=== PATIENT | female | born 1965 | race Caucasian/White ===

== ENCOUNTER 2023-12-07 08:43 | Emergency (ER) | payer BC, SELFPAY ==
[2023-12-07 08:51] VITALS: BP 160/87; PULSE 96; RESP 18; TEMP 36.8; O2SAT 98; BMI 24.9
[2023-12-07 09:09] VITALS: O2SAT 97
--- NOTE | 2023-12-07 09:09 | CRLHL7_ITS ---
For Patients: As a result of the Century Cures Act, medical imaging exams and procedure reports are released immediately into your electronic medical record. You may view this report before your referring provider. If you have questions, please contact your health care provider. Indication: Shortness of breath Technique: Chest 2 views Comparison: Chest x-ray 11/07/2018 Findings/Impression: Cardiovascular and mediastinum: Heart size and vasculature are normal in caliber and appearance. Mediastinum is within normal limits. Lungs and pleural spaces: Lungs are clear. No sign of infiltrate or mass. No sign of pleural effusion. No pneumothorax. Bones and soft tissues: Right upper quadrant surgical clips. Dictated by Caleb Armstrong MD @ 12/07/2023 9:41:57 AM (Electronically Signed)
--- NOTE | 2023-12-07 09:10 | ED_ITS ---
HPI - General Adult General Chief complaint: Chest Pain Stated complaint: chest pains, sweating, feeling weak and light head Time Seen by Provider: 12/07/23 08:56 Source: patient Mode of arrival: ambulatory Limitations: no limitations History of Present Illness HPI narrative: 58-year-old female presenting today after she had a 10 minute episode of chest pain 1 hour prior to presenting to the ER. Pain was substernal and central, towards the bottom of the sternum. She describes it as a pressure that came out of nowhere. It made her feel lightheaded, nauseated and sweaty. 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 Patient does have a past medical history significant for an ischemic stroke, she is on Plavix. She also had which she describes as a heart attack a many years ago in her 40s, she states that she had an angiogram at that time they did not find anything. 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 Patient also takes rosuvastatin and no other medications. Patient is currently asymptomatic. Father had an PA in his 50s, mother had an PA in her 70s. Related Data Allergies Allergy/AdvReac Type Severity Reaction Status Date / Time Penicillins Allergy Verified 12/07/23 08:50 Review of Systems Status of ROS: Reports: 10 or more systems reviewed and unremarkable except as noted in History and below [facility] Social History Smoking Status: Never smoker How often do you have a drink containing alcohol: never How often do you have six or more drinks on one occasion: Never AUDIT-C Alcohol total score: 0 Non-prescribed substance use: denies use service: No Exam Narrative: Exam Narrative: Well-nourished well-developed patient in no acute distress. Alert and oriented. Answers questions appropriately. Mood and affect are appropriate. Thoughts are goal oriented and rational. No tangential or magical thinking noted. Patient speaks in full sentences without needing to catch her breath. Speech is not slurred or pressured. Normal facial symmetry. HEENT: Normocephalic atraumatic. Pupils are equally round reactive to light. Extraocular muscles are intact. Conjunctivae are moist without any icterus noted. Moist mucous membranes. Posterior pharynx is normal. Neck is soft without any lymphadenopathy or thyromegaly. Cardiovascular: Heart is regular rate and rhythm S1 and S2 are present without any murmurs. Lungs: Clear to auscultation bilaterally no wheezes rhonchi or rales are appreciated. Patient takes deep breaths without any discomfort. Abdomen: Soft and nontender nondistended with normal bowel sounds. No guarding or rebound. Extremities: Bilateral lower extremities are without edema. Skin: Well perfused without any obvious rashes. Strength is 5/5 of the upper and lower extremities. Reflexes are 2+ and symmetric at the knees. There is no nystagmus either horizontally or vertically. Gait is normal. Const: Vital Signs, click to edit/add: Vital Signs - 24 hr 12/07/23 08:51 12/07/23 09:09 Temperature 98.3 F Pulse Rate [Pulse Oximeter] 96 Respiratory Rate 18 Blood Pressure [Ri t Upper Arm] 160/87 H Pulse Oximetry 98 97 Oxygen Delivery Me thod Room Air Course Course ED Course: EKG, read by me, shows normal sinus rhythm with a pulse of 90. CBC is entirely normal. D-dimer is within normal limits. Normal chemistries. LFTs unremarkable. Troponin less than 0.01. Normal lipase. Repeat EKG and troponin at the 2 hour abrahan revealed EKG with normal sinus rhythm and a pulse of 77 and troponin of 0. Patient remained asymptomatic during her time in the ER. Vital Signs Vital signs: Initial Vital Signs Temperature 98.3 F 12/07/23 08:51 Temperature Source Temporal Artery Scan 12/07/23 08:51 Pulse Rate 96 12/07/23 08:51 Pulse Rhythm Regular 12/07/23 08:51 Respiratory Rate 18 12/07/23 08:51 Blood Pressure 160/87 H 12/07/23 08:51 Blood Pressure Mean 111 H 12/07/23 08:51 Blood Pressure Position Supine 12/07/23 08:51 Pulse Oximetry 98 12/07/23 08:51 Oxygen Delivery Method Room Air 12/07/23 08:51 Vital Signs Temperature 98.3 F 12/07/23 08:51 Pulse Rate 96 12/07/23 08:51 Respiratory Rate 18 12/07/23 08:51 Blood Pressure 160/87 H 12/07/23 08:51 Pulse Oximetry 98 12/07/23 08:51 Oxygen Delivery Method Room Air 12/07/23 08:51 Temperature 98.3 F 12/07/23 08:51 Pulse Rate 96 12/07/23 08:51 Respiratory Rate 18 12/07/23 08:51 Blood Pressure 160/87 H 12/07/23 08:51 Pulse Oximetry 97 12/07/23 09:09 Oxygen Delivery Method Room Air 12/07/23 08:51 Medical Decision Making MDM Narrative Medical decision making narrative: 58-year-old female with 10 minute episode of chest pain resolved. Unclear etiology. Return to the ER if chest pain returns. Follow-up primary care team this coming week. Lab Data Lab results reviewed: Yes I reviewed the patient's lab results Labs: Lab Results 12/07/23 12/07/23 12/07/23 Range/Units 09:00 09:01 11:00 WBC 5.99 (4.50-11.00) K/uL RBC 4.42 (4.00-5.20) m/uL Hgb 13.2 (12.0-16.0) gm/dL Hct 40.7 (33.0-51.0) % MCV 92 (80-100) fL MCH 30 (26-34) pg MCHC 32 (32-36) gm/dL RDW Coeff of David 13.1 (11.5-15.5) % Plt Count 235 (140-440) K/uL Neut % (Auto) 45.6 (42.0-72.0) % Lymph % (Auto) 39.9 (20-44) % [place] % (Auto) 10.5 (0.0-11.0) % Eos % (Auto) 3.2 (0.0-7.0) % Baso % (Auto) 0.8 (0.0-3.0) % Neut # (Auto) 2.73 (1.7-7.0) K/uL Lymph # (Auto) 2.39 (0.90-2.90) K/uL [place] # (Auto) 0.60 (0.00-0.90) K/UL Eos # (Auto) 0.19 (0.00-0.50) K/uL Baso # (Auto) 0.05 (0.00-0.30) K/uL Abs Immat Gran (auto) 0.00 (0.00-0.30) K/uL Imm/Tot Granulo (auto) 0.0 % D-Dimer Quant (PE/DVT) 0.39 (0.00-0.50) ug/ml Sodium 140 (135-149) mmol/L Potassium 4.1 (3.6-5.1) mmol/L Chloride 104 (96-114) mmol/L Carbon Dioxide 29 (20-32) mmol/L Anion Gap 7 (7-15) mEq/L BUN 16 (7-30) mg/dL Creatinine 0.7 (0.5-1.5) mg/dL Estimated Creat Clear 84.01 Estimated GFR 101 ml/min Glucose 99 (60-115) mg/dL Calcium 9.9 (8.4-10.6) mg/dL Total Bilirubin 0.5 (0.1-1.5) mg/dL Direct Bilirubin 0.2 (0.0-0.5) mg/dL AST 40 H (12-35) U/L ALT 31 (4-35) U/L Alkaline Phosphatase 83 (40-150) U/L Troponin I < 0.01 L (0.01-0.04) ng/mL Total Protein 7.4 (6.0-8.3) g/dL Albumin 4.6 (3.3-5.0) g/dL Lipase 111 (23-300) U/L POC Troponin I 0.01 0.00 L (0.01-0.04) ng/ml Imaging Data Chest x-ray: Attestation: I have reviewed the pertinent imaging results. Radiologist's impression: Chest 2 views Comparison: Chest x-ray 11/07/2018 Findings/Impression: Cardiovascular and mediastinum: Heart size and vasculature are normal in caliber and appearance. Mediastinum is within normal limits. Lungs and pleural spaces: Lungs are clear. No sign of infiltrate or mass. No sign of pleural effusion. No pneumothorax. Bones and soft tissues: Right upper quadrant surgical clips. ECG Data Attestation: I personally reviewed and interpreted this ECG as follows: Discharge Plan Discharge Clinical Impression: Chest pain Patient Disposition: Home, Self-Care Condition: Stable Additional Instructions: Return to ER if chest pain returns. Follow-up with your primary care team this coming week. Follow Up/Referrals: Maurice Vergara MD [Staff Physician] - Stand Alone Forms: [employer] Info Instructions
[2023-12-07 09:17] LABS: Troponin, Point-of-Care* 0.01 ng/ml (0.01-0.04)
[2023-12-07 09:25] LABS: Basophils Absolute Auto 0.05 K/uL (0.00-0.30); Basophils Percent Auto 0.8 % (0.0-3.0); Eosinophils Absolute Auto 0.19 K/uL (0.00-0.50); Eosinophils Percent Auto 3.2 % (0.0-7.0); Hematocrit 40.7 % (33.0-51.0); Hemoglobin* 13.2 gm/dL (12.0-16.0); Lymphocytes Absolute Auto 2.39 K/uL (0.90-2.90); Lymphocytes Percent Auto 39.9 % (20-44); Mean Corpuscular HGB Conc 32 gm/dL (32-36); Mean Corpuscular Hemoglobin 30 pg (26-34); Mean Corpuscular Volume 92 fL (80-100); Monocytes Percent Auto 10.5 % (0.0-11.0); Neutrophils Absolute Auto 2.73 K/uL (1.7-7.0); Neutrophils Percent Auto 45.6 % (42.0-72.0); Platelet Count* 235 K/uL (140-440); RDW Coefficient of Variation % 13.1 % (11.5-15.5); Red Blood Count 4.42 m/uL (4.00-5.20); White Blood Count* 5.99 K/uL (4.50-11.00)
[2023-12-07 09:28] LABS: Slide Review Reflex No
[2023-12-07 09:42] LABS: Albumin* 4.6 g/dL (3.3-5.0); Chloride* 104 mmol/L (96-114); Potassium* 4.1 mmol/L (3.6-5.1); Sodium* 140 mmol/L (135-149)
[2023-12-07 09:44] LABS: Creatinine* 0.7 mg/dL (0.5-1.5); Est. Creatinine Clearance* 84.01; Estimated Glomerular Filt Rate 101 ml/min
[2023-12-07 09:45] LABS: Alanine Aminotransferase* 31 U/L (4-35); Alkaline Phosphatase* 83 U/L (40-150); Anion Gap 7 mEq/L (7-15); Aspartate Amino Transferase* 40 U/L (12-35); Bilirubin Direct* 0.2 mg/dL (0.0-0.5); Bilirubin Total* 0.5 mg/dL (0.1-1.5); Blood Urea Nitrogen* 16 mg/dL (7-30); Calcium* 9.9 mg/dL (8.4-10.6); Carbon Dioxide* 29 mmol/L (20-32); Glucose* 99 mg/dL (60-115); Lipase* 111 U/L (23-300); Total Protein* 7.4 g/dL (6.0-8.3)
[2023-12-07 09:53] LABS: D Dimer Quantitative* 0.39 ug/ml (0.00-0.50)
[2023-12-07 10:00] VITALS: BP 118/81; PULSE 85; RESP 14; O2SAT 95
[2023-12-07 10:03] LABS: Troponin I* < 0.01 ng/mL (0.01-0.04)
[2023-12-07 11:00] VITALS: BP 133/85; PULSE 75; RESP 14; O2SAT 94
== END 2023-12-07 11:35 | disposition home or self-care (01) ==
PROVIDERS: Emergency Provider Family Medicine
DX: R07.9 Chest pain, unspecified (principal)
CPT/HCPCS: 36415; 71046; 80048; 80076; 83690; 84484; 85025; 85379; 93005; 94761; 99284; 99285